=== PATIENT | female | born 1945 | race Caucasian/White ===

== ENCOUNTER 2022-09-19 03:27 | Emergency (ER) | payer OTHER ==
[~2022-09-19 03:27] MED LIST: CALCIUM CHLORIDE 100 MG/ML 10 ML SYRINGE ONE; EPINEPHrine 10 ML SYRINGE (0.1 MG/ML) ONE
--- NOTE | 2022-09-19 04:36 | ED ---
CPR HPI - General Chief Complaint: Cardiac Arrest/CPR Stated Complaint: Stemi Time Seen by Provider: 09/19/22 03:27 Source: EMS Mode of arrival: EMS - History of Present Illness Initial Comments: 77 year old female presents to emergency department as a cardiac arrest. EMS were called to the house for altered mental status and possible stroke. They arrived on scene to find the patient in distress. They placed on the quality assurance monitor final and patient went into PEA. She was intubated with a supraglottic airway and CPR was initiated. Patient had a transport time of 50 minutes via EMS. She received 6 epi, 2 A of bicarb. Repetitive pulse ox demonstrated PEA. Family denies that the patient was having any issues at the day. Report of stroke 2 months ago. The remainder of HPI is limited because the patient's current condition - Related Data Allergies Allergy/AdvReac Type Severity Reaction Status Date / Time Unable to Assess Allergy Verified 09/19/22 03:46 Review of Systems ROS Statement: Those systems with pertinent positive or pertinent negative responses have been documented in the HPI. ROS Other: All systems not noted in ROS Statement are negative. Past Medical History Past Medical History: Unable to Obtain History of Any Multi-Drug Resistant Organisms: Unobtainable Past Surgical History: Unable to Obtain Past Psychological History: Unable to Obtain Smoking Status: Unknown if ever smoked Past Alcohol Use History: Unable to Obtain Past Drug Use History: Unable to Obtain General Exam Limitations: altered mental status General appearance: other (unresponsive to painful stimuli) Head exam: Present: atraumatic, normocephalic, normal inspection Pupils: Present: mydriatic (6 mm, non reactive) ENT exam: Present: mucous membranes dry Respiratory exam: Present: other (patient intubated with supraglottic airway and is being bagged) Cardiovascular Exam: Present: other (no palpable pulse) Extremities exam: Present: other (no spontanous movements) Neurological exam: Present: altered, other (completely unresponsve without corneal reflex. no pupillary reaction to light. no signs of life) Skin exam: Present: cyanosis, mottled Medical Decision Making - Medical Decision Making Was pt. sent in by a medical professional or institution (, PA, WATER PROOFER, urgent care, hospital, or jail...) When possible be specific @ -No Did you speak to anyone other than the patient for history (EMS, parent, family, police, friend...)? What history was obtained from this source @ -EMS, patients son Did you review nursing and triage notes (agree or disagree)? Why? @ -I reviewed and agree with nursing and triage notes Were old charts reviewed (outside hosp., previous admission, EMS record, old EKG, old radiological studies, urgent care reports/EKG's, jail records)? Report findings @ -No old charts were reviewed Differential Diagnosis (chest pain, altered mental status, abdominal pain women, abdominal pain men, vaginal bleeding, weakness, fever, dyspnea, syncope, headache, dizziness, GI bleed, back pain, seizure, CVA, palpatations, mental health, musculoskeletal)? @ -cardiac arrest, STEMI. vfib arrest, PE, cardiomyopathy, dysrhythmia EKG interpreted by me (3pts min.). @ -Not done X-rays interpreted by me (1pt min.). @ -None done CT interpreted by me (1pt min.). @ -None done U/S interpreted by me (1pt. min.). @ -None done What testing was considered but not performed or refused? (CT, X-rays, U/S, labs)? Why? @ -labs, chest xray, chest ct however can not obtain pulses back on patient What meds were considered but not given or refused? Why? @ -None Did you discuss the management of the patient with other professionals (professionals i.e. , PA, WATER PROOFER, lab, RT, psych nurse, clinical social work aide, lawn mower, teacher, executive vice president and chief operating officer, showcase trimmer)? Give summary @ -examiner rating clerk. Also attempted to call primary care physician x2 without a call back Was smoking cessation discussed for >3mins.? @ -No Was critical care preformed (if so, how long)? @ -yes, 35 minutes Were there social determinants of health that impacted care today? How? (Homelessness, low income, unemployed, alcoholism, drug addiction, transportation, low edu. Level, literacy, decrease access to med. care, nursing home, rehab)? @ -No Was there de-escalation of care discussed even if they declined (Discuss DNR or withdrawal of care, Hospice)? DNR status @ -No What co-morbidities impacted this encounter? (DM, HTN, Smoking, COPD, CAD, Cancer, CVA, ARF, Chemo, Hep., AIDS, mental health diagnosis, sleep apnea, morbid obesity)? @ -CVA Was patient admitted / discharged? Hospital course, mention meds given and route, prescriptions, significant lab abnormalities, going to OR and other pertinent info. @ -Upon arrival patient is placed into trauma 4. We continued to bag the patient. Patient placed on Zoll monitor which continues to demonstrate PEA. We did continue CPR. An additional epinephrine is provided as well as calcium. Reevaluation continues to demonstrate PEA. Patient has received an hour and 10 minutes of CPR at this time and therefore time of called at 3:29 AM. I did attempt to reach the patient's primary care physician, Dr. Johnson however she does not call back. I did notify examiner. They do released the body. ME case is [id number]. Undiagnosed new problem with uncertain prognosis? @ -yes Drug Therapy requiring intensive monitoring for toxicity (Heparin, Nitro, Insulin, Cardizem)? @ -No Were any procedures done? @ -CPR Diagnosis/symptom? @ -acute cardiac arrest Acute, or Chronic, or Acute on Chronic? @ -acute Uncomplicated (without systemic symptoms) or Complicated (systemic symptoms)? @ -complicated Side effects of treatment? @ -allergic reaction Exacerbation, Progression, or Severe Exacerbation? @ -No Poses a threat to life or bodily function? How? (Chest pain, [place], [place], pneumonia, PE, COPD, DKA, ARF, appy, cholecystitis, CVA, Diverticulitis, Homicidal, Suicidal, threat to staff... and all critical care pts) @ -Patient Disposition Clinical Impression: Cardiac arrest Disposition: Referrals: Nonstaff,Physician [Primary Care Provider] - 1-2 days Preliminary Cause of : cardiac arrest
== END 2022-09-19 05:25 | disposition expired ==
LOC: EC 03:27
DX: I46.9 Cardiac arrest, cause unspecified (principal)
CPT/HCPCS: 92950; 99291; J0171